=== PATIENT | female | born 1995 | race Caucasian/White ===

== ENCOUNTER 2020-08-15 02:47 | Emergency (ER) | payer MEDICAID ==
[~2020-08-15] VITALS: Ht 167.6 cm; Wt 70.0 kg
[~2020-08-15 02:47] MED LIST: IBUP200T49 PO; NITR100C56 PO; PREN1TAB60 PO; RISP0.253 PO
[2020-08-15 02:49] VITALS: BP 121/86
[2020-08-15] MEDS ORDERED: LIDOCAINE-MPF 1%, 5ML ONE ×3 (02:58→03:54)
[2020-08-15] MEDS ORDERED: DIPH,PERTUSS(ACELL),TET VAC/PF 0.5 ML IM-VACC ONE ×2 (03:07→03:30)
[2020-08-15] MEDS ORDERED: LIDOCAINE-MPF 1%, 5ML INFIL ONE (03:30)
[2020-08-15] MEDS ORDERED: NEOSPORIN OINT. PKT 1 PACKET ONE (04:37)
== END 2020-08-15 05:01 | disposition home or self-care (01) ==
LOC: ED 04:55
DX: S01.112A Laceration without foreign body of left eyelid and periocular area, initial encounter (principal); Y04.8XXA Assault by other bodily force, initial encounter; Y93.89 Activity, other specified; Y92.009 Unspecified place in unspecified non-institutional (private) residence as the place of occurrence of the external cause; Y99.8 Other external cause status
CPT/HCPCS: 12052; 70450; 99284